=== PATIENT | female | born 1995 | race African-American/Black ===

== ENCOUNTER 2019-10-24 13:28 | Emergency (ER) | payer MEDICAID ==
[~2019-10-24] VITALS: Ht 165.1 cm; Wt 82.0 kg
[2019-10-24] MEDS ORDERED: IBUPROFEN 600MG TABLET PO ONE (16:00)
[2019-10-24] MEDS ORDERED: ACETAMINOPHEN 325MG TABLET PO ONE (16:00)
[2019-10-24] MEDS ORDERED: BACITRACIN ZINC OINT UDPKT TOP ONE (16:00)
[2019-10-24] MEDS ORDERED: CEPHALEXIN 250MG CAPSULE PO ONE (16:00)
[2019-10-24] MEDS ORDERED: TETANUS, DIPHTHERIA, PERTUSSIS VAC/PF 0.5ML (>7YR OLD) IM ONE (16:00)
[2019-10-24] MEDS ORDERED: LIDOCAINE HCL/EPINEPHRINE 1%-EPI 1:100,000 30 ML VIAL INFIL ONE (16:00)
[2019-10-24] MEDS ORDERED: LIDOCAINE HCL/EPINEPHRINE 1%-EPI 1:100,000 20 ML VIAL INFIL NR (16:15)
[2019-10-24 18:55] VITALS: BP 123/72
== END 2019-10-24 18:57 | disposition home or self-care (01) ==
LOC: ER 13:28
DX: S61.411A Laceration without foreign body of right hand, initial encounter (principal); X58.XXXA Exposure to other specified factors, initial encounter; Y93.89 Activity, other specified; Y92.89 Other specified places as the place of occurrence of the external cause; Y99.8 Other external cause status
CPT/HCPCS: 12004; 73130; 90471; 90715; 99284; J3490

== ENCOUNTER 2019-10-26 13:16 | Emergency (ER) | payer MEDICAID ==
[~2019-10-26] VITALS: Ht 165.1 cm; Wt 93.0 kg
[2019-10-26] MEDS ORDERED: BACITRACIN ZINC OINT UDPKT TOP ONE (14:00)
[2019-10-26 14:23] VITALS: BP 135/75
== END 2019-10-26 14:24 | disposition home or self-care (01) ==
LOC: ER 13:16
DX: S61.411D Laceration without foreign body of right hand, subsequent encounter (principal); W26.8XXD Contact with other sharp object(s), not elsewhere classified, subsequent encounter; Z98.890 Other specified postprocedural states
CPT/HCPCS: 99283

== ENCOUNTER 2023-07-23 15:54 | Emergency (ER) | payer OTHER, MEDICAID ==
[~2023-07-23] VITALS: Ht 167.6 cm; Wt 73.0 kg
[2023-07-23 15:55] VITALS: BP 133/85; PULSE 101; RESP 16; TEMP 97.7; O2SAT 100
[2023-07-23] MEDS ORDERED: TETANUS, DIPHTHERIA, PERTUSSIS VAC/PF 0.5ML (>10YR OLD) IM ONE (16:15)
== END 2023-07-23 16:37 | disposition left against medical advice (07) ==
LOC: ER 15:54
DX: S09.8XXA Other specified injuries of head, initial encounter (principal); X58.XXXA Exposure to other specified factors, initial encounter; Y93.89 Activity, other specified; Y92.89 Other specified places as the place of occurrence of the external cause; Y99.8 Other external cause status
CPT/HCPCS: 99283

== ENCOUNTER 2025-05-20 04:27 | Emergency (ER) | payer MEDICAID ==
[~2025-05-20] VITALS: Ht 167.6 cm; Wt 73.0 kg
[2025-05-20 04:34] VITALS: BP 118/78; PULSE 99; RESP 14; O2SAT 100
[2025-05-20] MEDS ORDERED: IBUP-1455 MT (04:55)
[2025-05-20] MEDS ORDERED: IBUPROFEN 600MG TABLET PO ONE (05:00)
== END 2025-05-20 05:00 | disposition left against medical advice (07) ==
LOC: ER 04:27
DX: M25.562 Pain in left knee (principal); F31.9 Bipolar disorder, unspecified; Z53.20 Procedure and treatment not carried out because of patient's decision for unspecified reasons; W17.89XA Other fall from one level to another, initial encounter; Y93.89 Activity, other specified; Y92.89 Other specified places as the place of occurrence of the external cause; Y99.8 Other external cause status
CPT/HCPCS: 99283